=== PATIENT | male | born 1955 | race Caucasian/White ===

== ENCOUNTER 2020-05-26 14:46 | Emergency (ER) | payer OTHER ==
[2020-05-26] MEDS ORDERED: Lidocaine 1% 10 ML MDV INJECT ONE (15:20)
--- NOTE | 2020-05-26 16:04 | EDM.PDOC ---
ED HPI GENERAL MEDICAL PROBLEM - General Chief Complaint: Laceration Stated Complaint: KNEE LAC Time Seen by Provider: 05/26/20 14:49 Source of Information: Reports: Patient History Limitations: Reports: No Limitations - History of Present Illness INITIAL COMMENTS - FREE TEXT/NARRATIVE: Patient is a 64 year old male who presents to the emergency department with c/o of a laceration to his right knee. He states that he was working on a truck with a universal grinder tool and hit himself in the knee. He has been able to ambulate without difficulty and denies significant pain. His last Tdap was 2 years ago. Right Knee Pain Score (Numeric/FACES): 1 - Related Data Allergies Allergy/AdvReac Type Severity Reaction Status Date / Time acetaminophen [From Tylenol] Allergy Other Verified 05/26/20 14:58 aspirin Allergy Airway Verified 05/26/20 14:58 [From [place] Plus Tightness Cold/Cough] chlorpheniramine Allergy Airway Verified 05/26/20 14:58 [From [place] Plus Tightness Cold/Cough] dextromethorphan Allergy Airway Verified 05/26/20 14:58 [From [place] [facility] Tightness Cold/Cough] honey Allergy Airway Verified 05/26/20 14:58 Tightness NSAIDS (Non-Steroidal Allergy Airway Verified 05/26/20 14:58 Anti-Inflamma Tightness phenylpropanolamine Allergy Airway Verified 05/26/20 14:58 [From [place] Plus Tightness Cold/Cough] Home Meds: Home Meds Budesonide/Formoterol [Symbicort 160-4.5 MCG] 2 puff INH BID 10/24/18 [History] Lisinopril 40 mg PO DAILY 10/24/18 [History] Pantoprazole Sodium 40 mg PO DAILY 10/24/18 [History] hydroCHLOROthiazide [Microzide] 12.5 mg PO DAILY 10/24/18 [History] Albuterol Sulfate [Albuterol Sulfate Hfa] 2 puff INH Q4H PRN 05/26/20 [History] Tamsulosin HCl [Flomax] 0.4 mg PO DAILY 05/26/20 [History] Past Medical History Cardiovascular History: Reports: Hypertension Respiratory History: Reports: Asthma Gastrointestinal History: Reports: GERD, Hiatal Hernia Genitourinary History: Reports: BPH, Renal Calculus - Past Surgical History HEENT Surgical History: Reports: Oral Surgery GI Surgical History: Reports: Appendectomy Social & Family History - Family History Family Medical History: Noncontributory - Tobacco Use Smoking Status *Q: Never Smoker Second Hand Smoke Exposure: No - Caffeine Use Caffeine Use: Reports: None - Recreational Drug Use Recreational Drug Use: No ED ROS GENERAL - Review of Systems Review Of Systems: Comprehensive ROS is negative, except as noted in HPI. ED EXAM, SKIN/RASH Exam: See Below Exam Limited By: No Limitations General Appearance: Alert, WD/WN, No Apparent Distress Respiratory/Chest: No Respiratory Distress, Lungs Clear, Normal Breath Sounds, No Accessory Muscle Use, Chest Non-Tender Cardiovascular: Normal Peripheral Pulses, Regular Rate, Rhythm, No Edema, No Gallop, No JVD, No Murmur, No Rub Neurological: Alert, Oriented, CN II-XII Intact, Normal Cognition, Normal Gait, Normal Reflexes, No Motor/Sensory Deficits Psychiatric: Normal Affect, Normal Mood Skin: Other (3cm gaping laceration with a 2cm adjacent area of superficial abrasion to the right knee.) ED SKIN PROCEDURES - Laceration/Wound Repair Right Knee Appearance: Subcutaneous Distal NVT: No Tendon Injury Anesthetic Type: Local Local Anesthesia - Lidocaine (Xylocaine): 1% Plain Local Anesthetic Volume: 2cc Skin Prep: Chlorhexidine (Hibiciens), Providone-Iodine (Betadine), Saline Exploration/Debridement/Repair: Wound Explored, Explored to Base, No Foreign Material Found Closed with: Sutures Lac/Wound length In cm: 3 Suture Size: 3-0 Suture Type: Nylon Sterile Dressing Applied: Nurse Tetanus Status Addressed: No Complications: Yes Complication Description: wound well irrigated and explored to base. No foreign material found. Course - Vital Signs Last Recorded V/S: Last Vital Signs Temp 98.8 F 05/26/20 14:54 Pulse 96 05/26/20 14:54 Resp 18 05/26/20 14:54 BP 154/97 H 05/26/20 14:54 Pulse Ox 98 05/26/20 14:54 - Orders/Labs/Meds Meds: Medications Discontinued Medications Generic Name Dose Route Start Last Admin Trade Name Freq PRN Reason Stop Dose Admin Lidocaine HCl 10 ml 05/26/20 15:20 05/26/20 15:35 Xylocaine 1% INJECT 05/26/20 15:21 10 ml ONETIME ONE Administration Departure - Departure Time of Disposition: 16:08 Disposition: Home, Self-Care 01 Condition: Good Clinical Impression: Laceration - Discharge Information *PRESCRIPTION DRUG MONITORING PROGRAM REVIEWED*: No *COPY OF PRESCRIPTION DRUG MONITORING REPORT IN PATIENT SAHLEY: No Instructions: Laceration Care, Adult, [id number] Referrals: Jovany Morse MD [Primary Care Provider] - Forms: ED Department Discharge Additional Instructions: You were seen in the emergency department today for a laceration to your right knee. The wound was cleansed and closed with 5 sutures. These should stay intact for 12 days. After that time they may be removed in the clinic by a nurse. Keep the wound clean and dry. Wash with normal soap and water twice daily. Do not submerge the wound in water. Watch for signs of infection including increased redness, swelling, or purulent drainage. If these should occur, you should be seen either in the clinic or in the emergency department as antibiotic treatment may be needed. Return to the ER as needed. Sepsis Event Note (ED) - Evaluation Sepsis Screening Result: No Definite Risk - Focused Exam Vital Signs: Vital Signs Temp Pulse Resp BP Pulse Ox 05/26/20 14:54 98.8 F 96 18 154/97 H 98
== END 2020-05-26 16:20 | disposition home or self-care (01) ==
LOC: JD.ED 14:46
DX: S81.011A Laceration without foreign body, right knee, initial encounter (principal); I10 Essential (primary) hypertension; J45.909 Unspecified asthma, uncomplicated; K21.9 Gastro-esophageal reflux disease without esophagitis; Z79.899 Other long term (current) drug therapy; Z88.6 Allergy status to analgesic agent; Z88.8 Allergy status to other drugs, medicaments and biological substances; Z91.018 Allergy to other foods; W22.8XXA Striking against or struck by other objects, initial encounter
CPT/HCPCS: 12002; 99282; J2001; 12001